=== PATIENT | male | born 1995 | race American Indian/Alaskan Native ===

== ENCOUNTER 2021-01-20 21:56 | Emergency (ER) | payer OTHER, SELFPAY ==
[2021-01-20 22:20] VITALS: BP 137/68; PULSE 88; RESP 20; TEMP 37.2; O2SAT 98; BMI 26.9
[2021-01-20 22:29] VITALS: BP 137/69
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
[2021-01-21 00:07] VITALS: BP 137/68
[2021-01-21] MEDS: HYDROCODONE/ACET 5/325 PREPACK 1 BOTTLE MISC (00:15)
[2021-01-21] MEDS: TET,DIPH,PERTUSS(ACELL),VAC/PF 0.5 ML SYRINGE IM (00:15)
== END 2021-01-21 01:00 | disposition home or self-care (01) ==
PROVIDERS: Emergency Provider Emergency Medicine
DX: S82.52XA Displaced fracture of medial malleolus of left tibia, initial encounter for closed fracture (principal); S80.212A Abrasion, left knee, initial encounter; M79.651 Pain in right thigh; V28.0XXA Motorcycle driver injured in noncollision transport accident in nontraffic accident, initial encounter; Z23 Encounter for immunization
CPT/HCPCS: 71045; 72170; 73552; 73610; 90471; 99284; 90715